=== PATIENT | female | born 1990 | race Caucasian/White ===

== ENCOUNTER 2022-11-24 01:17 | Emergency (ER) | payer OTHER ==
[~2022-11-24] VITALS: Ht 154.9 cm; Wt 65.7 kg
[2022-11-24] MEDS ORDERED: ONDANSETRON ODT4 MG PO (04:17)
[2022-11-24 04:40] VITALS: BP 108/74
--- OUTSIDE RECORDS SUMMARY | 2022-11-24 04:46 | XMS ---
PreManage Notification: LEO JONES [employer] Events No recent Security Events currently on file CRITERIA MET - [facility] - 2 Visits in 30 Days CARE PROVIDERS -, Raheem- Dentist: Homicide Detective [facility] PHONE: [phone] ARELIS ANDRADE Physician Current PHONE: Unknown Ariela has no Care Guidelines for this patient. [facility] VISIT COUNT (12 MO.) [address] [place] [address] TOTAL 2 NOTE: Visits indicate total known visits. ED/UCC VISIT TRACKING (12 MO.) 11/24/2022 01:19 [facility] [place] TYPE: Emergency COMPLAINT: - N/V 11/22/2022 10:49 [facility] [place] TYPE: Emergency DIAGNOSES: - Diarrhea, unspecified - Encounter for supervision of normal , unspecified, unspecified trimester - Nausea with vomiting, unspecified - SENT BY DOC INPATIENT VISIT TRACKING (12 MO.) No inpatient visits to display in this time frame [email or web address]
== END 2022-11-24 04:40 | disposition home or self-care (01) ==
LOC: ED 01:17
DX: O21.0 Mild hyperemesis gravidarum (principal); Z3A.01 Less than 8 weeks gestation of pregnancy
CPT/HCPCS: 36415; 76801; 76817; 80053; 81003; 83690; 83735; 84702; 85025; 86900; 86901; 96365; 96366; 96375; 99284-25; A9270; J2405; J2765; J3411; J7030; J7121